=== PATIENT | female | born 1990 | race Caucasian/White ===

== ENCOUNTER 2019-06-17 11:20 | Emergency (ER) | payer MEDICAID, SELFPAY ==
[2019-06-17 11:23] VITALS: BP 124/70; PULSE 95; TEMP 36.7; O2SAT 97
--- NOTE | 2019-06-17 12:07 | ED.GENADUL_ITS ---
Discharge Plan Disposition Patient Disposition: HOME Discharge Details Chief Complaint: Headache Clinical Impression: Acute sinusitis Primary Care Provider: None,None ED Provider: Hema Jones Home Meds and New Rx's Prescriptions: New amoxicillin-pot clavulanate [Augmentin] 875-125 mg tablet 1 tab PO BID Qty: 14 RF: 0 Continued methadone 10 mg/mL Concentrate 20 mg PO DAILY RF: 0 28-800 mg-mcg Tablet 1 tab PO DAILY RF: 0 Discharge Instructions Instructions: How to Stop Smoking (ED), Sinusitis (ED) Additional Instructions: Please take full course of antibiotic as prescribed. Stop smoking. Please contact your primary care physician to arrange follow-up. Return to the ER for any worsening or new concerning symptoms. Discharge Data Discharge Date/Time-TO BE ENTERED AT DEPARTURE: 06/17/19 12:36 Medical Decision Making 29-year-old female 3 months here with sinusitis. Plan to start Augmentin. Plan for outpatient follow-up. Usual and customary discharge instructions were provided. HPI General Mode of arrival: ambulatory . Date/Time Provider Initiated Documentation: 06/17/19 11:49 . Limitations to Documentation: no limitations . Information obtained by: patient . HPI Narrative: 29-year-old female 3 months here with sinus congestion, ear fullness and frontal headache. Pain is worse on the left. Pain started 3 to 4 days ago and has persisted. She has green nasal discharge. No associated fever or cough. No visual changes. Related Data Home Medications Medication Instructions Recorded Confirmed 1 tab PO DAILY 06/17/19 06/17/19 amoxicillin-pot clavulanate 1 tab PO BID #14 tab 06/17/19 [Augmentin] methadone 20 mg PO DAILY 06/17/19 06/17/19 Previous Rx's Medication Instructions Recorded amoxicillin-pot clavulanate 1 tab PO BID #14 tab 06/17/19 [Augmentin] Allergies Allergy/AdvReac Type Severity Reaction Status Date / Time Sulfa (Sulfonamide Allergy Intermediate Skin Rash Unverified 06/17/19 11:26 Antibiotics) General Stated Complaint: Headache JOSH: 3 Review of Systems All systems reviewed & are unremarkable except as noted in HPI and below Eyes Eyes: Reports as per HPI ENT Ears, Nose, Mouth, and Throat: Reports as per HPI, Denies vertigo, Denies ear discharge, Reports otalgia, Reports nasal discharge, Denies nasal trauma, Denies neck pain and Denies tinnitus Respiratory Respiratory: Reports as per HPI Musculoskeletal Musculoskeletal: Denies neck pain Neurologic Neurologic: Denies vertigo [facility] Social History Smoking/Tobacco Use Status: Current every day Tobacco Type: cigarettes Alcohol Intake: never Drug use: Never Substance use type: does not use Do you feel safe at home: Yes Do you feel safe in your relationship?: Yes Exam Const General: cooperative and no acute distress HENMT Head: normocephalic and atraumatic Ears: EAC's normal, no periauricular adenopathy and TM abnormal bulging; not with effusion and not erythematous Face and sinus: face symmetric, no erythema and sinus tenderness frontal (Left) and maxillary (Left) Mouth: oral mucosae normal and moist mucous membranes Teeth and gingiva: dentition normal Throat: posterior oropharynx normal Eyes Conjunctivae: normal conjunctivae Sclera: normal sclerae EOM: EOM intact bilaterally Neck Neck: trachea midline and supple Resp Auscultation: clear to auscultation bilaterally, no rales, no rhonchi and no wheezes Cardio Jugular venous pressure: no JVD Rate: regular rate and not tachycardic Rhythm: regular rhythm GI Palpation: soft, not firm, no guarding, no masses, not rigid and nontender Skin General skin exam: no rashes or lesions noted Neuro General: patient alert, patient awake and tone normal Course Vital Signs Vital signs: Vital Signs Temperature 36.7 C 06/17/19 11:23 Pulse 95 H 06/17/19 11:23 Blood Pressure 124/70 06/17/19 11:23 Pulse Oximetry 97 06/17/19 11:23 Temperature 36.7 C 06/17/19 11:23 Pulse 95 H 06/17/19 11:23 Respiratory Effort Non-Labored 06/17/19 11:25 Blood Pressure 124/70 06/17/19 11:23 Blood Pressure Position Sitting 06/17/19 11:23 Pulse Oximetry 97 06/17/19 11:23 Oxygen Delivery Method Room Air 06/17/19 11:23 Oxygen Flow Rate 0 06/17/19 11:23 Pain Level 9 06/17/19 11:23
[2019-06-17] MEDS: Amoxicillin 875/Clav. 125 TAB PO (12:34)
[2019-06-17 12:37] VITALS: BP 116/73; PULSE 85; RESP 16; TEMP 36.1; O2SAT 99
== END 2019-06-17 12:36 | disposition home or self-care (01) ==
PROVIDERS: Emergency Provider Student in an Organized Health Care Education/Training Program
DX: R09.81 Nasal congestion (principal); R51 Headache; Z3A.14 14 weeks gestation of pregnancy; Z33.1 Pregnant state, incidental; O99.332 Smoking (tobacco) complicating pregnancy, second trimester
CPT/HCPCS: 99283

== ENCOUNTER 2020-05-03 08:57 | Emergency (ER) | payer MEDICAID, SELFPAY ==
[2020-05-03 09:03] VITALS: BP 115/78; PULSE 89; RESP 16; TEMP 36.3; O2SAT 97
--- NOTE | 2020-05-03 09:12 | W.ED.GENAD ---
Discharge Plan Disposition Patient Disposition: HOME Condition: Stable Discharge Details Clinical Impression: Neck pain Primary Care Provider: None,None ED Provider: Karlos Quinonez Home Meds and New Rx's Prescriptions: New naproxen [Naprosyn] 500 mg tablet 500 mg PO BID PRNQty: 20 RF: 0 cyclobenzaprine 5 mg tablet 5 mg PO TID PRNQty: 8 RF: 0 Continued methadone 10 mg/mL Concentrate 25 mg PO DAILY RF: 0 Discharge Instructions Instructions: Neck Pain (ED) Additional Instructions: Flexeril and Naprosyn as directed, Flexeril may cause drowsiness. Gentle stretching as tolerated. Cool and/or warm compresses every 2 hours for 20 minutes. You may also use [id number] Lidoderm patches for pain control as directed. Please watch for new or worsening symptoms and return to the ER for any concerns. Lastly, I do recommend reaching out your primary care provider for prompt outpatient reevaluation. If symptoms persist then referral to specialty and/or physical therapy may be indicated. Medical Decision Making 30-year-old female with 9-10-day history of left neck and shoulder discomfort that began upon waking from sleep. She states the pain has come on progressively, now with severe in nature. Denies any true numbness or weakness but does have occasional tingling in her left hand. Clinically this appears to musculoskeletal in nature. Discomfort is made worse with any movement of her left shoulder or neck, appears to be primarily paravertebral, trapezius, deltoid, in nature. There is no active spasm however patient reports that she feels tight. Neuro, vascular, tendon intact. She is afebrile, no evidence of tachycardia, no history of IV drug use. She appears well, nontoxic. She does have a 4-month-old child is not breast-feeding. We discussed conservative therapy of likely musculoskeletal etiology. No clear indication for advanced imaging at this time. Will treat with a regimen of anti-inflammatories and short-term muscle relaxer. We also discussed [id number] Lidoderm patches. I will provide prescription for Flexeril and Naprosyn. Will give first dose of Flexeril and IM Toradol here in the ER. Recommend contacting her primary care provider for prompt outpatient reevaluation, eventual referral to PT and/or orthopedic may be indicated. Encouraged to return to the ER for new or worsening symptoms. Medical Records Medical records reviewed: Yes I reviewed the patient's medical records. HPI General Mode of arrival: ambulatory. Date/Time Provider Initiated Documentation: 05/03/20 08:59. Limitations to Documentation: no limitations. Information obtained by: patient. HPI Narrative: This is a 30-year-old female, past medical history of lower back pain, opiate abuse, now on methadone. Denies any history of IV drug use. She states that she is right-hand dominant. Approximately 9 or 10 days ago she went to bed asymptomatic and awoke after she reports sleeping funny. She states that the pain is between her left shoulder and neck, progressive in nature, started at a 2 out of 10, now an 8 or 9 out of 10. She has increased pain with any movement of her left shoulder or neck. She tells me that the pain does not radiate anywhere such as into her chest, back, up her neck, down her arm. She has occasionally felt some altered sensation in her left hand but denies true numbness or weakness. She did take [id number] anti-inflammatories a few days ago but discontinued because they were not helping. She has never had any symptoms like this before. Denies any midline point tenderness, recent illness, fever, fall or trauma. She states that she has a 4-month-old child at home which she does list but denies any obvious injury. She is not breast-feeding. Related Data Home Medications Medication Instructions Recorded Confirmed methadone 25 mg PO DAILY 06/17/19 05/03/20 cyclobenzaprine 5 mg PO TID PRN #8 tab 05/03/20 naproxen [Naprosyn] 500 mg PO BID PRN #20 tab 05/03/20 Previous Rx's Medication Instructions Recorded cyclobenzaprine 5 mg PO TID PRN #8 tab 05/03/20 naproxen [Naprosyn] 500 mg PO BID PRN #20 tab 05/03/20 Allergies Allergy/AdvReac Type Severity Reaction Status Date / Time Sulfa (Sulfonamide Allergy Intermediate Skin Rash Unverified 05/03/20 09:06 Antibiotics) General Stated Complaint: Nk/Back Pain JOSH: 3 Review of Systems Constitutional Constitutional: Denies fever(s), Denies headache(s) and Denies weakness ENT Ears, Nose, Mouth, and Throat: Denies headache(s) and Reports neck pain Cardiovascular Cardiovascular: Denies chest pain and Denies dyspnea Respiratory Respiratory: Denies dyspnea Gastrointestinal Gastrointestinal: Denies abdominal pain, Denies nausea and Denies vomiting Genitourinary Genitourinary: Denies dysuria Musculoskeletal Musculoskeletal: Denies back pain, Reports neck pain, Denies numbness and Reports tingling Integumentary/Breasts Skin/Breast: Denies rash Neurologic Neurologic: Denies headache(s), Denies numbness, Reports tingling and Denies weakness [facility] Social History Smoking/Tobacco Use Status: Current every day Tobacco Type: cigarettes Smoking risk assessment performed?: Yes Alcohol Intake: never Drug use: Never Substance use type: does not use Do you feel safe at home: Yes Do you feel safe in your relationship?: Yes Exam Const General: cooperative, healthy appearing, comfortable and no acute distress Orientation: alert, awake and other (Using cell phone without difficulty) HENMT Head: normal to inspection, normocephalic and atraumatic Eyes General: appearance normal, both eyes and all related structures Conjunctivae: conjunctivae normal Sclera: sclerae normal Neck Neck: normal visual inspection, full ROM, no lymphadenopathy, no meningeal signs, trachea midline, supple and tender Other: Patient with diffuse left paravertebral discomfort, no midline point tenderness. No erythema, ecchymosis or acute spasm. Skin is intact. Patient has increased discomfort with range of motion in any direction but seems to have worse pain with contralateral movement. Resp Effort & Inspection: normal respiratory effort and able to speak in complete sentences Auscultation: clear to auscultation bilaterally Cardio Rate: regular rate Rhythm: regular rhythm Back/Spine/Pelvis Back: no CVA tenderness and back tenderness Cervical Spine: cervical ROM normal Back/spine/pelvis image: 1. Diffuse soft tissue discomfort without any bony point tenderness. Full range of motion but pain increases with movement. No spasm, erythema, ecchymosis. Skin General skin exam: no rashes or lesions noted Neuro General: patient alert, patient awake, moves all extremities and no focal motor deficits Cognition: normal cognition Speech: speech normal Gait: normal gait Motor: muscle tone normal throughout, strength 5/5 throughout and no fasciculations Sensory Exam: no sensory deficits noted Extrem General: normal to inspection, full ROM and capillary refill normal Other: Discomfort as documented in the diagrams. Neuro, vascular, tendon intact. Psych Appearance: grossly normal Mental Status: mental status grossly normal Course Vital Signs Vital signs: Vital Signs Temperature 36.3 C L 05/03/20 09:03 Pulse 89 05/03/20 09:03 Respiratory Rate 16 05/03/20 09:03 Blood Pressure 115/78 05/03/20 09:03 Pulse Oximetry 97 05/03/20 09:03 Temperature 36.3 C L 05/03/20 09:03 Temperature Source Skin 05/03/20 09:03 Pulse 89 05/03/20 09:03 Respiratory Rate 16 05/03/20 09:03 Respiratory Effort Non-Labored 05/03/20 09:06 Blood Pressure 115/78 05/03/20 09:03 Blood Pressure Position Sitting 05/03/20 09:03 Pulse Oximetry 97 05/03/20 09:03 Oxygen Delivery Method Room Air 05/03/20 09:03 Oxygen Flow Rate 0 05/03/20 09:03 Pain Level 9 05/03/20 09:07
[2020-05-03] MEDS: Cyclobenzaprine 10 MG TAB PO (10:01)
[2020-05-03] MEDS: Ketorolac 60 MG/2 ML VIAL IM (10:01)
== END 2020-05-03 10:11 | disposition home or self-care (01) ==
PROVIDERS: Emergency Provider Physician Assistant
DX: M54.2 Cervicalgia (principal); M25.512 Pain in left shoulder
CPT/HCPCS: 96372; 99284; 99283; J1885